=== PATIENT | female | born 1975 | race Caucasian/White ===

== ENCOUNTER 2018-05-12 13:40 | Emergency (ER) | payer MEDICAID | END 2018-05-12 15:20 | disposition home or self-care (01) | LOC: FTE 13:40 | DX: L53.9 Erythematous condition, unspecified (principal); E11.9 Type 2 diabetes mellitus without complications; Z79.82 Long term (current) use of aspirin; Z79.84 Long term (current) use of oral hypoglycemic drugs | CPT/HCPCS: 99283 ==

== ENCOUNTER 2018-10-05 10:29 | Emergency (ER) | payer MEDICAID | END 2018-10-05 12:05 | disposition home or self-care (01) | LOC: FTE 10:29 | DX: N60.01 Solitary cyst of right breast (principal); E11.9 Type 2 diabetes mellitus without complications; Z79.82 Long term (current) use of aspirin; Z79.84 Long term (current) use of oral hypoglycemic drugs | CPT/HCPCS: 99283; Z7502 ==

== ENCOUNTER 2019-06-10 10:08 | Emergency (ER) | payer SELFPAY, MEDICAID | END 2019-06-10 10:52 | disposition home or self-care (01) | LOC: FTE 10:08 | DX: M79.89 Other specified soft tissue disorders (principal); R03.0 Elevated blood-pressure reading, without diagnosis of hypertension; E11.9 Type 2 diabetes mellitus without complications; Z79.82 Long term (current) use of aspirin; Z79.84 Long term (current) use of oral hypoglycemic drugs | CPT/HCPCS: 99283 ==